=== PATIENT | female | born 1940 | race Caucasian/White ===

== ENCOUNTER → 2018-08-30 | Outpatient (CLI) | payer MEDICARE ==
--- NOTE | 2018-08-30 09:43 | RAD ---
Fluoroscopy of the diaphragm, 08/30/2018: History: Diaphragmatic paralysis Diaphragmatic motion was examined fluoroscopically. 4 static and dynamic fluoroscopic sequences were recorded. 0.8 minutes of fluoroscopy time was utilized. The left hemidiaphragm demonstrates normal movement with inspiration, expiration and the sniff maneuver. The right hemidiaphragm is markedly elevated. It shows little movement with inspiration and rotation. There is slight paradoxical upward movement of the right hemidiaphragm during the sniff test. IMPRESSION: Right hemidiaphragmatic paralysis
--- NOTE | 2018-08-30 13:27 | RAD ---
CT of the chest without IV contrast and without comparison for abnormal chest x-ray, shortness of air. TECHNIQUE: Contiguous helical 5 mm axial images are obtained from the thoracic inlet to the base of the diaphragm. Sagittal and coronal reformations are evaluated. FINDINGS: There are early emphysematous changes bilaterally. There is a linear band of subsegmental atelectasis in the left lung base. Within the lateral aspect of the right lower lobe there is a 4.6 x 3.2 cm ovoid masslike abnormality laterally. There is also nonvisualization of the lateral segmental bronchus, and abrupt cut off of the anterior segmental bronchus of the right lower lobe, both of which may reflect segmental atelectasis associated with extrinsic compression from marked elevation of the right hemidiaphragm, or mucosal plugging or endobronchial obstruction from other causes. Neoplasm is possible, and bronchoscopy may be useful as a next step. No suspicious mediastinal, hilar, or axillary lymphadenopathy is seen. There is moderate atherosclerosis of the aorta and severe atherosclerosis of the coronary arteries, as well as postsurgical changes of prior CABG. The right hemidiaphragm is significantly elevated. Evaluation of the solid organs of the upper abdomen is limited by lack of IV contrast, however no morphologic anomalies of the liver, spleen, bilateral adrenal glands, bilateral kidneys, or pancreas is observed. The gallbladder is fluid distended and grossly unremarkable. There is interposition of the hepatic flexure anterior to the liver. IMPRESSION: 1. 4.6 cm ovoid masslike abnormality in the lateral aspect of the right lower lobe. Imaging features are most suggestive of atelectasis due to endobronchial obstruction of the lateral and anterior segmental bronchi. This may be due to extrinsic compression from markedly elevated right hemidiaphragm or intrinsic obstruction from mucous plugging and/or neoplasm. Consider further evaluation with bronchoscopy. 2. Extensive coronary artery calcifications and evidence of prior CABG. Electronically signed by: Leonardo Jones MD (08/30/2018 1:24 PM) [id number]
== END | disposition home or self-care (01) ==
LOC: CT 09:31
PROVIDERS: ATTEND Internal Medicine Pulmonary Disease
DX: J98.09 Other diseases of bronchus, not elsewhere classified (principal); I25.10 Atherosclerotic heart disease of native coronary artery without angina pectoris; I70.0 Atherosclerosis of aorta; J98.6 Disorders of diaphragm; Z95.1 Presence of aortocoronary bypass graft
CPT/HCPCS: 71250; 76000